=== PATIENT | male | born 1970 | race Caucasian/White ===

== ENCOUNTER 2021-02-11 11:38 | Observation (INO) | payer BC ==
[~2021-02-11] VITALS: Ht 193 cm; Wt 84.3 kg
[2021-02-11] MEDS ORDERED: ONDANSETRON 4MG/2ML VIAL IV ONE (12:25)
[2021-02-11] MEDS ORDERED: NS 1,000 ML IV ONE ×2 (12:25→15:45)
[2021-02-11] MEDS ORDERED: MORPHINE 4 MG/ML 1ML VIAL/SYRINGE (J2270) IV ONE ×2 (12:25→14:00)
[2021-02-11 12:49] LABS: BASO % 0.2 % (0.0-1.0); EOS # 0.1 10^3/uL (0.0-0.5); EOS % 0.4 % (0.0-3.0); HEMATOCRIT 37.8 % (42.0-52.0); HEMOGLOBIN 12.7 g/dl (13.5-17.5); LYMPH # 1.2 10^3/uL (1.5-5.0); LYMPH % 9.9 % (24.0-44.0); MEAN CORPUSCULAR HEMOGLOBIN 31.1 pg (27.0-33.0); MEAN CORPUSCULAR HGB CONC 33.6 g/dl (32.0-36.5); MEAN CORPUSCULAR VOLUME 92.6 fl (80.0-96.0); MONO # 0.6 10^3/uL (0.0-0.8); MONO % 4.9 % (2.0-8.0); NEUTROPHILS # 10.2 10^3/uL (1.5-8.5); NEUTROPHILS % 84.1 % (36.0-66.0); PLATELET COUNT, AUTOMATED 265 10^3/uL (150-450); RED BLOOD COUNT 4.08 10^6/uL (4.30-6.10); WHITE BLOOD COUNT 12.1 10^3/uL (4.0-10.0)
[2021-02-11] MEDS ORDERED: ISOVUE-370 76% 100ML VIAL As Ordered ONE (12:55)
--- NOTE | 2021-02-11 13:19 | REP ---
INDICATION: diffuse abd pain, h/o sbo, hernia, diverticulitis/colectomy. COMPARISON: None TECHNIQUE: Axial contrast-enhanced images from the lung bases to the pubic symphysis using 100 cc Isovue 370 intravenous contrast material. Coronal and sagittal reformations obtained. This CT examination was performed using the following dose reduction techniques: Automated exposure control, adjustment of mA and/or kv according to the patient's size, and the use of iterative reconstruction technique. FINDINGS: Liver, spleen, pancreas, gallbladder, bilateral adrenal glands and kidneys are normal. The patient appears to be status post left hemicolectomy. The small bowel demonstrates dilated fluid-filled loops in the mid to upper abdomen as well as mildly prominent loops in the mid to lower abdomen with mural thickening and small areas of mesenteric fat stranding primarily noted in the left mid abdomen. No free air or ascites/drainable collection/abscess. These findings are nonspecific and may represent either early small-bowel obstruction versus enteritis. Pelvis demonstrates normal bladder and mildly prominent prostate gland. No ascites. No free air. No intraperitoneal or retroperitoneal adenopathy. Abdominal aorta and vasculature demonstrate atherosclerotic changes without aneurysm or dissection.. Musculoskeletal structures are intact and without acute osseous abnormality. IMPRESSION: 1. Prior left hemicolectomy with normal appearance of the residual colon. 2. Small bowel findings as described above including fluid-filled dilated loops of small bowel in the mid to upper abdomen with mildly prominent enhancing loops of bowel in the mid to lower abdomen and subtle mesenteric stranding. Clinical correlation is recommended. Differential diagnosis includes possible partial/early small bowel obstruction as well as enteritis. No free air to suggest perforation. No drainable collection/abscess. <Electronically signed by Josesito Peng > 02/11/21 4524
[2021-02-11 13:23] LABS: ALBUMIN 3.7 GM/DL (3.2-5.2); ALT/SGPT 23 U/L (12-78); BILIRUBIN,DIRECT 0.1 MG/DL (0.0-0.2); BILIRUBIN,TOTAL 0.4 MG/DL (0.2-1.0); CK-MB VALUE MASS 1.2 NG/ML (<3.6); CPK CREATINE PHOSPHOKINASE 314 U/L (39-308); LIPASE 63 U/L (73-393); MB/CK RELATIVE INDEX 0.38 (< OR =4); TOTAL PROTEIN 6.8 GM/DL (6.4-8.2); TROPONIN I < 0.02 NG/ML (< 0.10)
[2021-02-11] MEDS ORDERED: D31000TA2 PO (14:34)
[2021-02-11] MEDS ORDERED: FIBE625T PO (14:34)
[2021-02-11] MEDS ORDERED: CENT1TAB12 PO (14:34)
[2021-02-11] MEDS ORDERED: ACETAMINOPHEN TAB 650MG DOSE (2X325MG) PO PRN (16:15)
[2021-02-11] MEDS ORDERED: ONDANSETRON 4MG/2ML VIAL IV PRN (16:30)
--- NOTE | 2021-02-11 16:32 | HPEPDOC ---
General Date of Admission 02/11/21 Date of Service: February 11, 2021 Chief Complaint The patient is a 50-year-old male admitted with a reason for visit of Abd Pain. Source: Patient Exam Limitations: No limitations Timing/Duration: 4-6 hours Severity: Moderate History of Present Illness Patient is 50 years old male with past medical history of diverticulitis presented to the hospital with abdominal pain. Patient stated that he developed low quadrants abdominal pain around 5-6 hours ago associated with nausea and vomiting. Patient stated that his pain became progressively worse and now he has a constant nausea. Of note, in March 2020 patient was diagnosed with diverticulitis with perforation, surgery was done with colostomy. In September 2020 patient had reversal colostomy with bowel resection. In December 2020 patient reported that he had another laparoscopic surgery most, but he doesn't know what was diagnosis. In ER patient was found to have no fever, no hypotension, laboratory result pertinent for leukocytosis of 12.1, hemoglobin 12.7. CT abdomen/pelvis showed 1. Prior left hemicolectomy with normal appearance of the residual colon. Small bowel findings including fluid-filled dilated loops of small bowel in the mid to upper abdomen with mildly prominent enhancing loops of bowel in the mid to lower abdomen and subtle mesenteric stranding, question possible partial/early small bowel obstruction as well as enteritis Home Medications Scheduled Calcium Polycarbophil (Fibercon) 625 Mg Tablet, 625 MG PO DAILY, (Reported) Cholecalciferol (Vitamin D3) (Vitamin D3) 1,000 Unit Tablet, 1,000 UNITS PO DAILY, (Reported) Multivit-Min/FA/Lycopen/Lutein (Centrum Silver Men Tablet) 1 Each Tablet, 1 EACH PO DAILY, (Reported) Allergies Coded Allergies: No Known Allergies (Unverified , 02/11/21) Past Medical History Medical History Diverticulitis Surgical History Bowel resection, colostomy Family History Mother from heart diseases Social History * Smoker: Denies Alcohol: Denies Drugs: denies A-FIB/CHADSVASC A-FIB History Current/History of A-Fib/PAF?: No Current PO Anticoag Therapy: No Review of Systems Constitutional: Denies: Chills, Fever Eyes: Denies: Pain ENT: Denies: Head Aches Skin: Denies: Rash, Lesions Pulmonary: Denies: Dyspnea, Cough Cardiovascular: Denies: Chest Pain Gastrointestinal: Reports: Nausea, Vomiting, Abdominal Pain Genitourinary: Denies: Dysuria, Frequency Hematologic: Denies: Bruising Endocrine: Denies: Polydipsia Musculoskeletal: Denies: Neck Pain Neurological: Denies: Weakness Psych: Reports: Mood Normal Physical Examination General Exam: Positive: Alert, Cooperative Eye Exam: Positive: PERRLA ENT Exam: Positive: Atraumatic Neck Exam: Positive: Supple; Negative: JVD Chest Exam: Positive: Clear to auscultation Heart Exam: Positive: Rate Normal Abdomen Exam: Positive: Tenderness (lower quadrants pain) Extremity Exam: Negative: Clubbing, Cyanosis Skin Exam: Negative: Nl turgor and temperature Neuro Exam: Positive: Normal Gait Psych Exam: Positive: Mental status NL Vital Signs Vital Signs Date Time Temp Pulse Resp B/P (MAP) Pulse Ox O2 Delivery O2 Flow Rate FiO2 02/11/21 14:22 97.4 77 18 152/90 99 Room Air Laboratory Data Labs 24H Laboratory Tests 2 02/11/21 12:24: Immature Granulocyte % (Auto) 0.5, Neutrophils (%) (Auto) 84.1H, Lymphocytes (%) (Auto) 9.9L, Monocytes (%) (Auto) 4.9, Eosinophils (%) (Auto) 0.4, Basophils (%) (Auto) 0.2, Neutrophils # (Auto) 10.2H, Lymphocytes # (Auto) 1.2L, Monocytes # (Auto) 0.6, Eosinophils # (Auto) 0.1, Basophils # (Auto) 0.0, Nucleated Red Blood Cells % (auto) 0.0, Total Bilirubin 0.4, Direct Bilirubin 0.1, Aspartate Amino Transf (AST/SGOT) 20, Alanine Aminotransferase (ALT/SGPT) 23, Alkaline Phosphatase 65, Total Creatine Kinase 314H, Creatine Kinase MB 1.2, Creatine Kinase MB Relative Index 0.38, Troponin I < 0.02, Total Protein 6.8, Albumin 3.7, Albumin/Globulin Ratio 1.2, Lipase 63L 02/11/21 12:40: POC Glucose (Misc Panel) 96, POC Sodium (Misc Panel) 138, POC Potassium (Misc Panel) 4.0, POC Chloride (Misc Panel) 103, POC Total CO2 (Misc Panel) 26.0, POC Blood Urea Nitrogen (Misc Panel 13, POC Ionized Calcium (Misc Panel) 4.7, POC Creatinine (Misc Panel) 0.7, POC Hematocrit (Misc Panel) 39.0 02/11/21 12:44: POC Lactate (Misc Panel) 0.79 02/11/21 13:24: Urine Color YELLOW, Urine Appearance CLEAR, Urine pH 6.0, Urine Specific [place] 1.032, Urine Protein 1+H, Urine Glucose (UA) NEGATIVE, Urine Ketones 2+H, Urine Blood NEGATIVE, Urine Nitrite NEGATIVE, Urine Bilirubin NEGATIVE, Urine Urobilinogen 0.2, Urine Leukocyte Esterase NEGATIVE, Urine WBC (Auto) 2, Urine RBC (Auto) 0, Urine Hyaline Casts (Auto) 0, Urine Bacteria (Auto) NEGATIVE, Urine Squamous Epithelial Cells 0, Urine Mucus (Auto) SMALL, Urine Sperm (Auto) CBC/BMP Laboratory Tests 02/11/21 12:24 Assessment/Plan Patient is 50 years old male with past medical history of diverticulitis presented to the hospital with abdominal pain. Patient stated that he developed low quadrants abdominal pain around 5-6 hours ago associated with nausea and vomiting. Patient stated that his pain became progressively worse and now he has a constant nausea. Of note, in March 2020 patient was diagnosed with diverticulitis with perforation, surgery was done with colostomy. In September 2020 patient had reversal colostomy with bowel resection. In December 2020 patient reported that he had another laparoscopic surgery most, but he doesn't know what was diagnosis. In ER patient was found to have no fever, no hypotension, laboratory result pertinent for leukocytosis of 12.1, hemoglobin 12.7. CT abdom en/pelvis showed 1. Prior left hemicolectomy with normal appearance of the residual colon. Small bowel findings including fluid-filled dilated loops of small bowel in the mid to upper abdomen with mildly prominent enhancing loops of bowel in the mid to lower abdomen and subtle mesenteric stranding, question possible partial/early small bowel obstruction as well as enteritis Problems (1) Abdominal pain Status: Acute Problem Text: Differential diagnosis included partial bowel obstruction, enteritis Patient afebrile, not tachycardic, has mild leukocytosis, no lactic acidosis. I will discuss with surgical team antibiotic therapy IV fluid, nothing by mouth for now (2) Small bowel obstruction Status: Acute Problem Text: Appreciate/agree with surgical consult (3) Nausea and vomiting Status: Acute Problem Text: Zofran IV when necessary Plan / VTE VTE Prophylaxis Ordered?: Yes WILLIAM HUTCHINS DO February 11, 2021 16:32
[2021-02-11] MEDS: PERCOCET 5MG/325MG TAB PO SCH ×2 (17:00→20:49)
[2021-02-11] MEDS ORDERED: CETACAINE SPRAY 5GM TOP ONE (17:10)
[2021-02-11 17:38] LABS: RSV AMPLIFICATION NEGATIVE (NEGATIVE)
[2021-02-11] MEDS: D5W/0.9% SODIUM CHLORIDE 1,000 ML IV SCH (20:49)
[2021-02-11 21:04] VITALS: BP 164/93
[2021-02-12] MEDS: PERCOCET 5MG/325MG TAB PO SCH ×6 (00:36→22:11)
[2021-02-12] MEDS: D5W/0.9% SODIUM CHLORIDE 1,000 ML IV SCH (00:36)
[2021-02-12 06:14] LABS: HEMATOCRIT 37.4 % (42.0-52.0); HEMOGLOBIN 12.4 g/dl (13.5-17.5); MEAN CORPUSCULAR HEMOGLOBIN 31.6 pg (27.0-33.0); MEAN CORPUSCULAR HGB CONC 33.2 g/dl (32.0-36.5); MEAN CORPUSCULAR VOLUME 95.4 fl (80.0-96.0); PLATELET COUNT, AUTOMATED 252 10^3/uL (150-450); RED BLOOD COUNT 3.92 10^6/uL (4.30-6.10); WHITE BLOOD COUNT 7.2 10^3/uL (4.0-10.0)
[2021-02-12 06:21] VITALS: BP 135/85
[2021-02-12 06:39] LABS: ALBUMIN 3.2 GM/DL (3.2-5.2); ALT/SGPT 19 U/L (12-78); BILIRUBIN,TOTAL 0.4 MG/DL (0.2-1.0); BLOOD UREA NITROGEN 8 MG/DL (7-18); CALCIUM LEVEL 8.3 MG/DL (8.5-10.1); CARBON DIOXIDE LEVEL 26 MEQ/L (21-32); CHLORIDE LEVEL 109 MEQ/L (98-107); CREATININE FOR GFR 0.53 MG/DL (0.70-1.30); GLOMERULAR FILTRATION RATE > 60.0 (>56); GLUCOSE, FASTING 91 MG/DL (70-100); MAGNESIUM LEVEL 1.9 MG/DL (1.8-2.4); SODIUM LEVEL 141 MEQ/L (136-145); TOTAL PROTEIN 6.3 GM/DL (6.4-8.2)
[2021-02-12] MEDS: ENOXAPARIN 40MG/0.4ML SYRINGE (J1650 PER 10MG) SC SCH (09:00)
--- NOTE | 2021-02-12 09:23 | REP ---
INDICATION: SBO COMPARISON: CT dated 02/11/2021 TECHNIQUE: Supine view of the abdomen and pelvis. FINDINGS: Bowel gas pattern is nonspecific and without evidence of obstruction or perforation. No organomegaly. No abnormal calcifications. Skeletal structures intact. Nasogastric tube courses just below the left hemidiaphragm. IMPRESSION: Normal abdominal radiograph. <Electronically signed by Josesito Peng > 02/12/21 0919
--- NOTE | 2021-02-12 10:06 | IPNPDOC ---
Text Note Date of Service The patient was seen on 02/12/21. NOTE Subjective: NG tube was placed by surgical team yesterday. Today patient stated that his abdominal pain improved. No any acute events overnight Objective: GENERAL APPEARANCE: NAD HEENT: no scleral icterus, no JVD, EOMI CARDIOVASCULAR: S1S2 LUNGS: CTA ABDOMEN: soft & not tender w palpitation MUSCULOSKELETAL: no cyanosis, no swelling INTEGUMENT: no generalized pallor NEUROLOGICAL: cranial nerve function from 2-12 intact intact, follows commands, speech not dysarthric Assessment/Plan Patient is 50 years old male with past medical history of diverticulitis pre sented to the hospital with abdominal pain. Patient stated that he developed low quadrants abdominal pain around 5-6 hours ago associated with nausea and vomiting. Patient stated that his pain became progressively worse and now he has a constant nausea. Of note, in March 2020 patient was diagnosed with diverticulitis with perforation, surgery was done with colostomy. In September 2020 patient had reversal colostomy with bowel resection. In December 2020 patient reported that he had another laparoscopic surgery most, but he doesn't know what was diagnosis. In ER patient was found to have no fever, no hypotension, laboratory result pertinent for leukocytosis of 12.1, hemoglobin 12.7. CT abdomen/pelvis showed 1. Prior left hemicolectomy with normal appearance of the residual colon. Small bowel findings including fluid-filled dilated loops of small bowel in the mid to upper abdomen with mildly prominent enhancing loops of bowel in the mid to lower abdomen and subtle mesenteric stranding, question possible partial/early small bowel obstruction as well as enteritis Problems (1) Abdominal pain Resolved Will repeat KUB, if there is improvement we will discontinue NG tube and will start clear liquid diet IV fluid, nothing by mouth for now (2) Small bowel obstruction Surgical team follows him (3) Nausea and vomiting Zofran IV when necessary VS,Fishbone, I+O VS, Fishbone, I+O Laboratory Tests 02/11/21 12:24 02/12/21 05:40 Vital Signs Date Time Temp Pulse Resp B/P (MAP) Pulse Ox O2 Delivery O2 Flow Rate FiO2 02/12/21 09:48 18 Room Air 02/12/21 06:21 97.8 63 135/85 (102) 96 I&O- Last 24 Hours up to 6 AM0 02/12/21 06:00 Intake Total 2001 ml Output Total 1100 ml Balance 901 ml WILLIAM HUTCHINS DO February 12, 2021 10:06
--- NOTE | 2021-02-12 10:57 | CR ---
CONSULTATION DATE: 02/11/2021 HISTORY OF PRESENT ILLNESS: The patient is a 50-year-old male who presents with history of colectomy for diverticulitis in the past, had episode of small bowel obstruction earlier this year and had operative intervention for this. The patient presents now with approximately 5-6 hour history of abdominal pain, nausea, vomiting, with some air fluid levels on x-rays consistent with small bowel obstruction. There is suggestion partial early small bowel obstruction versus enteritis given the mild distention of the small bowel. The patient does complain of pain, not typical colicky pain, although appears comfortable moving around in bed. He has had nausea, no vomiting since he has been in the emergency room. MEDICAL HISTORY: Consistent with history of diverticulitis, bowel resection, colostomy. MEDICATIONS: 1. FiberCon. 2. Vitamin D. 3. Multivitamins. LABORATORY DATA: His white count is slightly. PHYSICAL EXAMINATION: GENERAL: 50-year-old male who looks his stated age. HEENT is unremarkable. NECK: Supple without adenopathy. LUNGS: Clear. HEART: Regular. ABDOMEN: Soft, mildly distended in the upper abdomen, mostly in the epigastric and left upper quadrant area where the distention is appreciated on his CT scan. Otherwise laterally his abdomen is quite benign as is in the lower abdomen and he is only mildly tender, it is really not a guarding or rebound appreciated. IMPRESSION/PLAN: The patient has evidence of probable partial small bowel obstruction. At this time my recommendation is he stay NPO, IV fluids, nasogastric tube. Given that he has had enough discomfort that it really has not changed since the beginning of his ER visit and he has not had any more flatus or bowel movements, I do feel the NG tube is warranted. Thus I would recommend that he have NG tube to low intermittent suction and will see how he does overnight and see what the x-rays show in the morning. Otherwise, continue supportive care for right now.
[2021-02-12 14:00] VITALS: BP 134/86
[2021-02-12 20:03] VITALS: BP 135/86
[2021-02-13] MEDS: PERCOCET 5MG/325MG TAB PO SCH ×3 (01:59→09:00)
[2021-02-13 06:17] VITALS: BP 131/67
[2021-02-13] MEDS: ENOXAPARIN 40MG/0.4ML SYRINGE (J1650 PER 10MG) SC SCH (07:35)
--- NOTE | 2021-02-13 09:40 | DS.PDOC ---
Discharge Summary General Date of Admission February 11, 2021 at 16:14 Date of Discharge 02/13/21 Discharge Summary PROCEDURES PERFORMED DURING STAY: [None]. ADMITTING DIAGNOSES: Abdominal pain Small bowel obstruction Nausea and vomiting DISCHARGE DIAGNOSES: Abdominal pain Small bowel obstruction Nausea and vomiting COMPLICATIONS/CHIEF COMPLAINT: Abd Pain, Nausea And Vomiting. HISTORY OF PRESENT ILLNESS: Patient is 50 years old male with past medical history of diverticulitis presented to the hospital with abdominal pain. Patient stated that he developed low quadrants abdominal pain around 5-6 hours ago associated with nausea and vomiting. Patient stated that his pain became progressively worse and now he has a constant nausea. Of note, in March 2020 patient was diagnosed with diverticulitis with perforation, surgery was done with colostomy. In September 2020 patient had reversal colostomy with bowel resection. In December 2020 patient reported that he had another laparoscopic surgery most, but he doesn't know what was diagnosis. In ER patient was found to have no fever, no hypotension, laboratory result pertinent for leukocytosis of 12.1, hemoglobin 12.7. CT abdomen/pelvis showed 1. Prior left hemicolectomy with normal appearance of the residual colon. Small bowel findings including fluid-filled dilated loops of small bowel in the mid to upper abdomen with mildly prominent enhancing loops of bowel in the mid to lower abdomen and subtle mesenteric stranding, question possible partial/early small bowel obstruction as well as enteritis HOSPITAL COURSE: During the hospital stay patient received treatment with NG tube, nothing by mouth and clear liquid diet. Partial small bowel obstruction resolved. Patient tolerates diet well DISCHARGE MEDICATIONS: Please see below. ALLERGIES: Please see below. PHYSICAL EXAMINATION ON DISCHARGE: VITAL SIGNS: Please see below. GENERAL APPEARANCE: NAD HEENT: no scleral icterus, no JVD, EOMI CARDIOVASCULAR: S1S2 LUNGS: CTA ABDOMEN: soft & not tender w palpitation MUSCULOSKELETAL: no cyanosis, no swelling INTEGUMENT: no generalized pallor NEUROLOGICAL: cranial nerve function from 2-12 intact intact, follows commands, speech not dysarthric LABORATORY DATA: Please see below. IMAGING: [facility] NAME: SANJAY ARMSTRONG DATE OF : 1970 AGE: 50 SEX: M REPORT #: [id number] ROOM: ED TECHNOLOGIST: FILIBERTO DOCTOR: CHRIS E. HAENLIN PA-C Ordered for Date&Time: 02/11/21 1224 cc: [~ rep ct ivnm] Service Date&Time: 02/11/21 1257 This report is in Signed status. If this report is in a DRAFT status it has not yet been reviewed by the radiologist for accuracy. Thank you for having your radiology procedures performed at [facility] RADIOLOGY REPORT Date&Time printed: [~ rep prt dt last] [~ rep prt tm last] Page [address] of [address] [address] RADIOLOGY REPORT This report is in Signed status. If this report is in a DRAFT status it has not yet been reviewed by the radiologist for accuracy. Thank you for having your radiology procedures performed at [facility] RADIOLOGY REPORT Date&Time printed: [~ rep prt dt last] [~ rep prt tm last] Page 1 of 2 NAME: SANJAY ARMSTRONG DATE OF : 1970 AGE: 50 SEX: M REPORT #: [id number] ROOM: ED TECHNOLOGIST: FILIBERTO DOCTOR: CHRIS BUTLER PA-C Ordered for Date&Time: 02/11/21 1224 cc: [~ rep ct ivnm] Service Date&Time: 02/11/21 1257 EXAMINATION REQUESTED: CT ABD/PEL W/IV CONTRAST ONLY REASON FOR PATIENT VISIT: ABD PAIN REASON FOR EXAM/COMMENT: diffuse abd pain, h/o sbo, hernia, diverticulitis/colectomy INDICATION: diffuse abd pain, h/o sbo, hernia, diverticulitis/colectomy. COMPARISON: None TECHNIQUE: Axial contrast-enhanced images from the lung bases to the pubic symphysis using 100 cc Isovue 370 intravenous contrast material. Coronal and sagittal reformations obtained. This CT examination was performed using the following dose reduction techniques: Automated exposure control, adjustment of mA and/or kv according to the patient's size, and the use of iterative reconstruction technique. FINDINGS: Liver, spleen, pancreas, gallbladder, bilateral adrenal glands and kidneys are normal. The patient appears to be status post left hemicolectomy. The small bowel demonstrates dilated fluid-filled loops in the mid to upper abdomen as well as mildly prominent loops in the mid to lower abdomen with mural thickening and small areas of mesenteric fat stranding primarily noted in the left mid abdomen. No free air or ascites/drainable collection/abscess. These findings are nonspecific and may represent either early small-bowel obstruction versus enteritis. Pelvis demonstrates normal bladder and mildly prominent prostate gland. No ascites. No free air. No intraperitoneal or retroperitoneal adenopathy. Abdominal aorta and vasculature demonstrate atherosclerotic changes without aneurysm or dissection.. Musculoskeletal structures are intact and without acute osseous abnormality. IMPRESSION: 1. Prior left hemicolectomy with normal appearance of the residual colon. 2. Small bowel findings as described above including fluid-filled dilated loops of small bowel in the mid to upper abdomen with mildly prominent enhancing loops of bowel in the mid to lower abdomen and subtle mesenteric stranding. Clinical correlation is recommended. Differential diagnosis includes possible partial/early small bowel obstruction as well as enteritis. No free air to suggest perforation. No drainable collection/abscess. <Electronically signed by Josesito Peng > 02/11/21 1315 DD: Josesito Peng MD 02/11/21 1310 DT: AMBER 02/11/21 1315 DS: HEYDI 02/11/21 1310 02/11/21 1310 [~ rep ct labl] PROGNOSIS: Fair ACTIVITY: [As tolerated]. DIET: Clear liquid diet for 3-5 days DISPOSITION: Home. ITEMS TO FOLLOWUP ON ON OUTPATIENT: Follow-up with PCP in 3-5 days DISCHARGE CONDITION: [Stable]. TIME SPENT ON DISCHARGE: 40 minutes. Vital Signs/I&Os Vital Signs Date Time Temp Pulse Resp B/P (MAP) Pulse Ox O2 Delivery O2 Flow Rate FiO2 02/13/21 06:20 16 02/13/21 06:17 97.1 61 131/67 (88) 97 Room Air I&O- Last 24 Hours up to 6 AM 02/13/21 06:00 Intake Total 2540 ml Output Total 825 ml Balance 1715 ml Laboratory Data Labs 24H Laboratory Tests 2 02/12/21 11:53: Bedside Glucose (Misc Panel) 79 FSBS Laboratory Tests Test 02/12/21 11:53 Range/Units Bedside Glucose (Misc Panel) 79 70-105 MG/DL Discharge Medications Scheduled Calcium Polycarbophil (Fibercon) 625 Mg Tablet, 625 MG PO DAILY, (Reported) Cholecalciferol (Vitamin D3) (Vitamin D3) 1,000 Unit Tablet, 1,000 UNITS PO DAILY, (Reported) Multivit-Min/FA/Lycopen/Lutein (Centrum Silver Men Tablet) 1 Each Tablet, 1 EACH PO DAILY, (Reported) Allergies Coded Allergies: No Known Allergies (Unverified , 02/11/21) WILLIAM HUTCHINS DO February 13, 2021 09:40
== END 2021-02-13 09:50 | disposition home or self-care (01) ==
LOC: M ED 11:38 → M ED INP 16:14 → ENRESERV 19:24 → M MS5PR 20:59
PROVIDERS: ADMIT Internal Medicine; ATTEND Internal Medicine
DX: K56.600 Partial intestinal obstruction, unspecified as to cause (principal); R11.2 Nausea with vomiting, unspecified; K57.92 Diverticulitis of intestine, part unspecified, without perforation or abscess without bleeding; R10.30 Lower abdominal pain, unspecified; Z79.899 Other long term (current) drug therapy; Z90.49 Acquired absence of other specified parts of digestive tract
CPT/HCPCS: 36415; 74018; 74177; 80047; 80053; 80076; 81001; 82550; 82553; 83605; 83690; 83735; 84484; 85025; 85027; 87631; 96361; 96374; 96375; 96376; 99285; J2270; J2405; Q9967